=== PATIENT | male | born 1960 | race Caucasian/White ===

== ENCOUNTER 2016-04-14 05:10 | Day surgery (SDC) | payer OTHER ==
[2016-04-06 12:20] VITALS: BMI 21.1
[~2016-04-14 05:10] MED LIST: ACETAMINOPHEN TAB 500 MG TAB PO ONE; DEXAMETHASONE SOD PHOSPHATE 10 MG/ML 1 ML VIAL IV ONE; FAMOTIDINE 20 MG/2 ML VIAL IV ONE; LACTATED RINGERS 1,000 ML IV SCH; ONDANSETRON 4 MG/2 ML VIAL IVP ONE; OXYMETAZOLINE 0.05% NASL SPRAY 15 ML NASAL ONE
[2016-04-14] MEDS ORDERED: LIDOCAINE 1% 20 ML VIAL (10MG/ML) FOR IV START INTRADERMA ONE (05:40)
[2016-04-14] MEDS ORDERED: DEXAMETHASONE SOD PHOS (MDV) 100 MG/10 ML VIAL ONE (06:03)
[2016-04-14] MEDS ORDERED: LACTATED RINGERS 1,000 ML BAG IV ONE (06:03)
[2016-04-14] MEDS ORDERED: LIDOCAINE 1% INJ 10MG/ML (20 ML MDV) ONE (06:03)
[2016-04-14] MEDS ORDERED: MIDAZOLAM 2 MG/2 ML VIAL ONE (06:03)
[2016-04-14] MEDS ORDERED: SUCCINYLCHOLINE CHLORIDE 100 MG/5 ML SYR IV ONE (06:03)
[2016-04-14] MEDS ORDERED: LACTATED RINGERS 1,000 ML IV ONE ×2 (06:03→06:42)
[2016-04-14] MEDS ORDERED: DEXTROSE 5% IN WATER 50 ML BAG ONE (06:03)
[2016-04-14] MEDS ORDERED: ePHEDrine 50 MG/ML 1 ML AMP ONE (06:03)
[2016-04-14] MEDS ORDERED: PROPOFOL 10 MG/ML 20 ML VIAL IV ONE (06:03)
[2016-04-14] MEDS ORDERED: ceFAZolin 1,000 MG VIAL ONE (06:03)
[2016-04-14] MEDS ORDERED: PHENYLEPHRINE-0.9% NACL SYG 1 MG/10 ML SYRINGE ONE (06:03)
[2016-04-14] MEDS ORDERED: fentaNYL (PF) 50 MCG/ML 2 ML AMP ONE (06:03)
[2016-04-14] MEDS: ceFAZolin 1,000 MG in DEXTROSE/WATER 1 50ML.BAG IV ONE ×2 (06:07→06:09)
[2016-04-14] MEDS ORDERED: BACITRACIN 500 UNIT/GM OINT 28.4 GM TUBE TOPICAL ONE (06:26)
[2016-04-14] MEDS ORDERED: LIDOCAINE 1%-EPI 1:100,000 20 ML VIAL SQ ONE ×2 (06:26)
[2016-04-14] MEDS ORDERED: EPINEPHrine 1 MG/ML (MDV) 30 ML VIAL TOPICAL ONE (06:27)
[2016-04-14] MEDS ORDERED: FLUORESCEIN STRIPS 1 MG STRIP MISCELLANE ONE (06:27)
[2016-04-14 07:19] VITALS: TEMP 98
[2016-04-14] MEDS: HYDROmorphone 1 MG/ML 1 ML SYRINGE IVP PRN ×2 (07:30→07:35)
--- NOTE | 2016-04-14 07:34 | P.OP ---
Date of Procedure: 04/14/16 Preoperative Diagnosis: Chronic sinusitis Deviated nasal septum Bilateral hypertrophy of nasal inferior turbinates with obstruction Previous nasal fracture Postoperative Diagnosis: Same Procedure(s) Performed: Bilateral functional endoscopic sinus surgery Septoplasty Bilateral outfracture compression and submucosal resection of the inferior turbinates Anesthesia: MYKE Surgeon: Alexi Juarez Estimated Blood Loss (ml): 10 Pathology: other (Sinonasal) Condition: stable Disposition: PACU Indications for Procedure: This patient had facial trauma fell against his face and developed a septal fracture. He's had a lifetime of sinonasal symptoms with facial pain and pressure, anosmia, intranasal purulence. He's been on multiple antibiotics over the last 2 decades with no long-term improvement. CAT scan shows chronic sinusitis. Large amount of infectious material was noted on CAT scan. After long discussion, the patient is requesting septoplasty, turbinate reduction surgery, and bilateral functional endoscopic sinus surgery. All risks, benefits , and alternative therapies were discussed in detail. Risks of bleeding, infection, need for secondary surgery, penetration into the orbit or brain, etc. etc. were explained, consent was obtained and all questions were answered. Operative Findings: Patient had widespread sinonasal disease. Pus was seen in the maxillary frontal and sphenoid sinuses directly. Septum was severely deviated to the left anteriorly into the right posteriorly. Inferior turbinates were markedly enlarged and obstructive. Description of Procedure: This patient was taken to the operative room and placed in the supine position. A general inhalation anesthetic was administered to the patient by the department of anesthesia with a functioning IV line in place. The patient was monitored throughout the entire case by the department of anesthesia. The eyes were taped shut for protection. The patient was placed in a slight reverse Trendelenburg position. The patient had previously utilize Afrin nasal spray preoperatively. The nose was evaluated and the septum lateral nasal wall and inferior turbinates were injected with lidocaine 1% with epinephrine 1 100,000 bilaterally. Approximately 10 minutes were allowed wait for full vasoconstrictive effects to take place. At this point a caudal incision was made over the caudal portion of the left septum down to the mucoperichondrium. A mucoperichondrial flap was elevated on the left side and dissection was carried with use of tunnels posteriorly. We then made a crossover incision through the cartilage to the contralateral side and for the mucoperichondrial flap development was performed to the extent of visualization on the contralateral side. After the cartilage was freed with use of several crosshatching incisions and removal of some redundant strips of septal cartilage, the septum was straightened and placed back in the midline. The septum was sutured fixated to the ovarian groove. Excellent straightening occurred and the septum was visibly straight. Incision was closed with a 40 rapid Vicryl. We utilized a running nonlocking fashion for closure of the incision. A quilting stitch was used to reapproximate the septal flaps with use of a 40 rapid Vicryl. We then entered the nose with a 0 and 30 Friend amanda endoscope. Previous to this we did inject the lateral nasal wall and middle turbinate and uncinate process with lidocaine 1% with epinephrine 1 100,000. Approximately 10 minutes were allowed wait for full vasoconstrictive effects to take place. With use of a microdebrider and a pediatric backbiter, we took down the uncinate process bilaterally. We then opened the maxillary sinuses bilaterally. We utilized a microdebrider for this and entered the maxillary sinuses and removed diseased tissue. This was done bilaterally. After the maxillary sinuses were opened and the diseased tissue was removed we entered the ethmoid bulla and with use of a microdebrider and up-biting boss and Blakesley, we followed the fovea frontalis through the basal lamella and into the posterior ethmoid air cells and did a total ethmoidectomy. We removed the anterior ethmoid air cells with use of a microdebrider and up-biting boss. After all the anterior ethmoid air cells were removed we did the same in the posterior ethmoid. A total ethmoidectomy was completed in that fashion with removal of all the anterior and posterior ethmoid air cells and diseased tissue. Once the ethmoids cells were all taken down we then entered the sphenoid sinus medially and inferiorly underneath the inferior attachment of the superior turbinate. The sphenoid sinus was opened entered and diseased tissue was removed bilaterally. This was done with a microdebrider and Blakesley. We then entered the frontal sinuses with a giraffe and up-biting Blakesley entered on the agar nasi cells. We open the frontal sinuses and removed sinus tissue that was diseased. We explored the frontal sinuses bilaterally. To summarize all sinuses were open all sinuses were explored and we remove diseased tissue from the sphenoid maxillary and frontal sinuses. Ethmoid sinuses were opened totally. Nasal pore was inserted and minimal bleeding was encountered. We reinspected the skull base there is no signs of any orbital penetration or signs of any intracranial penetration. The sugical site was reinspected after the nasal pore was placed and no bleeding was seen. Intranasal splints were inserted and fixated at the end of the case. We utilized Benjamin nasal splints. There will be removed and the patient returns to the office. Attention was then paid to the inferior turbinates. The bilateral inferior turbinates were hypertrophic and obstructive. We entered the anterior portion of the inferior turbinates with use of a microdebrider. We remove bone and submucosal elements with use of a microdebrider bilaterally. The inferior turbinates underwent a submucosal resection with removal of submucosal tissue and bone. We obtained a much better and normal in size for breathing. The inferior turbinates were then outfractured and compressed with a Boyes nasal elevator. Excellent airway was obtained and was symmetric bilaterally. No bleeding was encountered.
[2016-04-14] MEDS ORDERED: HYDROcodone/APAP 5-325MG 1 EACH TAB PO ONE (08:11)
[2016-04-14 08:42] VITALS: BP 107/65; PULSE 72; RESP 16
[2016-04-15] MEDS ORDERED: ONDANSETRON 4 MG/2 ML VIAL IVP ONE (05:00)
== END 2016-04-14 08:57 | disposition home or self-care (01) ==
LOC: OR 05:10
PROVIDERS: ATTEND Otolaryngology
DX: J32.9 Chronic sinusitis, unspecified (principal); J34.2 Deviated nasal septum; J34.3 Hypertrophy of nasal turbinates; J45.909 Unspecified asthma, uncomplicated; I10 Essential (primary) hypertension; J44.9 Chronic obstructive pulmonary disease, unspecified; F32.9 Major depressive disorder, single episode, unspecified; K21.9 Gastro-esophageal reflux disease without esophagitis; Z95.1 Presence of aortocoronary bypass graft; Z79.82 Long term (current) use of aspirin; Z79.899 Other long term (current) drug therapy; Z79.51 Long term (current) use of inhaled steroids
CPT/HCPCS: 30520; 31267; 31255; 31288; 31276; 30140; 88305; 88300; J0171; J2250; J1100 ×2; J2405; J0690; J2001; J3010; J1170; J2370; J0330; J2704

== ENCOUNTER → 2016-06-08 | Outpatient (CLI) | payer OTHER ==
--- NOTE | 2016-06-09 11:12 | ECHOF ---
Referral Reason:I50.9 CHF MEASUREMENTS -------- HEIGHT: 185.4 cm WEIGHT: 71.2 kg BP: 120/74 RVIDd: 2.8 cm (< 3.3) IVSd: 0.9 cm (0.6 - 1.1) LVIDd: 4.9 cm (3.9 - 5.3) LVPWd: 1.0 cm (0.6 - 1.1) IVSs: 1.6 cm LVIDs: 3.6 cm LVPWs: 1.4 cm LA Diam: 4.2 cm (2.7 - 3.8) LAESV Index (A-L): 27.44 ml/m Ao Diam: 2.9 cm (2.0 - 3.7) AV Cusp: 1.8 cm (1.5 - 2.6) MV EXCURSION: 13.536 mm (> 18.000) MV EF SLOPE: 79 mm/s (70 - 150) EPSS: 1.0 cm MV E Orville: 0.64 m/s MV DecT: 249 ms MV A [place]ville: 0.73 m/s MV E/A Ratio: 0.88 RAP: 5.00 mmHg RVSP: 10.90 mmHg FINDINGS -------- Sinus rhythm. This was a technically good study. Left ventricular wall thickness is normal. Overall left ventricular systolic function is normal with, an EF between 55 - 60 %. The right ventricle is normal in size. Normal LA size by volume 22+/-6 ml/m2. The right atrium is normal in size. The aortic valve is trileaflet and appears structurally normal. Mild mitral annular calcification present. There is trace mitral regurgitation. Mild tricuspid regurgitation present. Right ventricular systolic pressure is normal at < 35 mmHg. Trace/mild (physiologic) pulmonic regurgitation. The aortic root size is normal. The inferior vena cava is mildly dilated. There is no pericardial effusion. CONCLUSIONS -------- 1. Sinus rhythm. 2. There is trace mitral regurgitation. 3. Mild tricuspid regurgitation present. 4. Right ventricular systolic pressure is normal at < 35 mmHg. 5. Trace/mild (physiologic) pulmonic regurgitation. 6. The aortic root size is normal. 7. The inferior vena cava is mildly dilated. 8. There is no pericardial effusion. 9. This was a technically good study. 10. Left ventricular wall thickness is normal. 11. Overall left ventricular systolic function is normal with, an EF between 55 - 60 %. 12. The right ventricle is normal in size. 13. Normal LA size by volume 22+/-6 ml/m2. 14. The right atrium is normal in size. 15. The aortic valve is trileaflet and appears structurally normal. 16. Mild mitral annular calcification present. HOSTAGE NEGOTIATOR: Justa Pritchard RDCS
== END | disposition home or self-care (01) ==
LOC: RADECHMAIN 12:51
PROVIDERS: ATTEND Family Medicine
DX: I08.8 Other rheumatic multiple valve diseases (principal)
CPT/HCPCS: 93306

== ENCOUNTER → 2016-06-09 | Outpatient (CLI) | payer OTHER ==
--- NOTE | 2016-06-09 15:44 | XR ---
Lumbar spine HISTORY: Intervertebral disc degeneration 3 views of the lumbar spine, comparison to prior CT abdomen pelvis 28 October 2015 There is a stent present in the distribution of the common iliac artery on the right which shows an i rregular appearance distally and may be partially occluded. Lumbar vertebral bodies show preserved he ight and alignment. Bone mineralization is maintained. There is multilevel spondylosis. Loss of disc height present L5-S1. Sclerosis present in the posterior elements compatible with facet arthropathy. IMPRESSION: Mild degenerative disc disease. Findings within the common iliac artery stent as describe d.
== END | disposition home or self-care (01) ==
LOC: RADXRMAIN 13:03
PROVIDERS: ATTEND Family Medicine
DX: M51.36 Other intervertebral disc degeneration, lumbar region (principal)
CPT/HCPCS: 72100

== ENCOUNTER → 2016-06-22 | Outpatient (CLI) | payer OTHER ==
--- NOTE | 2016-06-22 09:21 | CT ---
EXAMINATION TYPE: CT lumbar spine wo con DATE OF EXAM: 06/22/2016 7:20 AM COMPARISON: Lumbar spine x-ray June 09, 2016. Recent CT abdomen and pelvis October 2015. HISTORY: low back pain for 15 years with pain numbness or tingling into left buttocks and back of thi gh as well as left calf and toes with left leg weakness with prior disc disease L4-L5 level per patie nt, no recent injury per patient. Spondylosis with radiculopathy per order. CT DLP: 649.3 mGycm Automated exposure control for dose reduction was used. FINDINGS: There are 5 lumbar vertebra redemonstrated given [place] of hypoplastic left T12 rib. Lumbar spine shows satisfactory alignment without evidence of acute fracture or dislocation. Vertebral body heigh ts and disc space heights are fairly well-maintained. No large posterior disc herniations are seen on sagittal images. There is mild to minimal multilevel anterior and lateral spurring. Review of axial images shows the T12-L1, L1-L2, and L2-L3 levels all to appear within normal limits. Axial images at the L3-L4 level shows mild broad disc bulge mildly effacing the anterior thecal sac. Bilateral neural foramina are patent. Axial images at the L4-L5 level shows central disc protrusion minimally effacing the anterior thecal sac with mild facet degenerative changes bilaterally on axial image 76. Bilateral neural foramina rem ain patent. Axial images at L5-S1 level show moderate facet degenerative changes bilaterally. There is broad-base d left paracentral disc protrusion on axial images 85 and 86. Spinal canal is not effaced. There is l ateral recess effacement and Suspected effacement of Central left S1 nerve. Bilateral neural foramina are patent. There is a metallic stent in the right common iliac artery at origin. There is mild to moderate calci fied atherotic change of the abdominal aorta and pelvic branch vessels. IMPRESSION: SOME MULTILEVEL DEGENERATIVE CHANGES IN THE LUMBAR SPINE DETAILED ABOVE, MOST PROMINENT DISC HERNI ATION L5-S1 LEVEL APPEARS TO EFFACE THE CENTRAL LEFT S1 NERVE. CONSIDER MRI CONFIRMATION.
== END | disposition home or self-care (01) ==
LOC: RADCTMAIN 06:59
PROVIDERS: ATTEND Family Medicine
DX: M51.17 Intervertebral disc disorders with radiculopathy, lumbosacral region (principal); M47.26 Other spondylosis with radiculopathy, lumbar region
CPT/HCPCS: 72131

== ENCOUNTER 2016-10-18 10:28 | Day surgery (SDC) | payer OTHER ==
[2016-10-17 09:17] VITALS: BMI 24.4
[~2016-10-18 10:28] MED LIST changes: -ACETAMINOPHEN TAB 500 MG TAB PO ONE; -DEXAMETHASONE SOD PHOSPHATE 10 MG/ML 1 ML VIAL IV ONE; -FAMOTIDINE 20 MG/2 ML VIAL IV ONE; -ONDANSETRON 4 MG/2 ML VIAL IVP ONE; -OXYMETAZOLINE 0.05% NASL SPRAY 15 ML NASAL ONE
[2016-10-18 10:51] VITALS: RESP 20; TEMP 97.4
[2016-10-18 11:09] LABS: Glucose,Whole Blood 116 mg/dL (75-99)
[2016-10-18] MEDS ORDERED: LIDOCAINE 1% INJ 10MG/ML (20 ML MDV) ONE (11:23)
[2016-10-18] MEDS ORDERED: MIDAZOLAM 2 MG/2 ML VIAL ONE (11:23)
[2016-10-18] MEDS ORDERED: PROPOFOL 10 MG/ML 20 ML VIAL IV ONE (11:23)
--- NOTE | 2016-10-18 11:29 | P.GSHP ---
History of Present Illness H&P Date: 10/18/16 Chief Complaint: Screening colonoscopy This is a 55-year-old male for from Dr. Torres Parks. Patient presents today for screening colonoscopy. Past Medical History Past Medical History: Asthma, Coronary Artery Disease (CAD), Chest Pain / Angina , COPD, GERD/Reflux, GI Bleed, Hyperlipidemia, Hypertension, Myocardial Infarction (DC), Pneumonia, Vascular Disorder Additional Past Medical History / Comment(s): past HX pneumonia, past irregular heart beat, BULGING DISC, DDD, PVD, peptic ulcer with lower GI bleed, CHRONIC Constipation, DIVERTICULOSIS & HEMORRHOIDS, CYSTIC ACNE. Cyst on Kidney. VOICE HOARSENESS ONGOING. EDEMA RLE. SCIATICA Last Myocardial Infarction Date:: 1983 History of Any Multi-Drug Resistant Organisms: None Reported Past Surgical History: Adenoidectomy, Cholecystectomy, Coronary Bypass/CABG, Heart Catheterization, Heart Catheterization With Stent, Tonsillectomy Additional Past Surgical History / Comment(s): 06/29/15 suspension microlarygoscopy,[place] [facility] [place]gent QUAD CABG 2006 EST. COLONOSCOPY, EGD, lumbar injections, SINUS SX // Past Anesthesia/Blood Transfusion Reactions: No Reported Reaction Date of Last Stent Placement:: 2013 Smoking Status: Current every day smoker - Past Family History Mother Family Medical History: Cancer, Pulmonary Embolus Additional Family Medical History / Comment(s): Breast CA. Father Family Medical History: Myocardial Infarction (DC) Additional Family Medical History / Comment(s): Father of a massive DC at the age of 64yrs. Brother(s) Family Medical History: Cancer Additional Family Medical History / Comment(s): lung and brain cancer Medications and Allergies Home Medications Medication Instructions Recorded Confirmed Type Carvedilol [Coreg] 6.25 mg PO TID 11/28/13 10/18/16 History Desvenlafaxine Succinate [Pristiq 50 mg PO QAM 11/28/13 10/18/16 History ER] Fexofenadine/Pseudoephedrine 1 tab PO BID 11/28/13 10/18/16 History [Kay-D 12 Hour Tablet] Montelukast [Singulair] 10 mg PO DAILY 11/28/13 10/18/16 History cloNIDine HCL [Catapres] 0.2 mg PO BID 12/04/13 10/18/16 History Albuterol Sulfate [Proair Hfa] 2 puff INHALATION RT-Q4H PRN 04/07/15 10/18/16 History Enalapril [Vasotec] 5 mg PO BID 04/07/15 10/18/16 History Fluticasone Nasal [place] [Flonase 1 spray EA NOSTRIL BID PRN 04/07/15 10/18/16 History Nasal [place]] Umeclidinium Brm/Vilanterol Tr 1 puff INHALATION HS 04/07/15 10/18/16 History [Anoro Ellipta 62.5-25 Mcg INH] HYDROcodone/APAP 10-325MG [[place] 1 tab PO QID PRN 10/27/15 10/18/16 History 10-325] Esomeprazole Magnesium [NexIUM] 40 mg PO DAILY 04/06/16 10/18/16 History Aspirin 325 mg PO DAILY 04/07/16 10/18/16 History Gabapentin 600 mg PO Q4H 10/17/16 10/18/16 History tiZANidine [Zanaflex] 4 mg PO Q8HR PRN 10/17/16 10/18/16 History Allergies Allergy/AdvReac Type Severity Reaction Status Date / Time ibuprofen [From Motrin] AdvReac stomach Verified 10/18/16 10:52 bleed Surgical - Exam Vital Signs Temp Pulse Resp BP Pulse Ox 97.4 F L 69 20 124/72 92 L 10/18/16 10:50 10/18/16 10:50 10/18/16 10:50 10/18/16 10:50 10/18/16 10:50 - General well developed, no distress - Eyes PERRL - ENT normal pinna - Neck no masses - Respiratory normal expansion - Cardiovascular Rhythm: regular - Abdomen Abdomen: soft, non tender Results - Labs Abnormal Lab Results - Last 24 Hours (Table) 10/18/16 Range/Units 11:04 POC Glucose (mg/dL) 116 H (75-99) mg/dL Assessment and Plan Plan: We'll perform screening colonoscopy
--- NOTE | 2016-10-18 11:43 | P.OP ---
Date of Procedure: 10/18/16 Preoperative Diagnosis: Screening colonoscopy Postoperative Diagnosis: Incomplete colonoscopy. Tortuous bowel. Normal rectum Procedure(s) Performed: Colonoscopy Implants: Anesthesia: MAC Surgeon: Kee Huang Pathology: none sent Condition: stable Disposition: PACU Indications for Procedure: Operative Findings: Description of Procedure: The patient's placed on the endoscopy table in the lateral position. He received IV sedation. Digital rectal exam was performed which revealed a few external hemorrhoids. Possible colonoscope was then placed patient anus and passed throughout the colon. The scope could not be passed beyond the sigmoid colon secondary to severe tortuosity of bowel. Patient is unable to hold area is well. Multiple times made to advance the colonoscope however this and possible. Scope was withdrawn. The distal sigmoid colon and rectum appeared normal. Scope was withdrawn for patient is scheduled for a barium enema
[2016-10-18 12:19] VITALS: BP 103/60; PULSE 60
--- NOTE | 2016-10-19 10:14 | FL ---
EXAMINATION TYPE: FL barium enema DATE OF EXAM: 10/18/2016 COMPARISON: Correlation CT 10/28/2015 HISTORY: 55-year-old male incomplete colonoscopy. Back pain and prior history of diverticulitis. Total fluoroscopy time: 1 minute 24 seconds. Total images: 37. TECHNIQUE: A double contrast barium enema study is performed. FINDINGS: Saloonkeeper view of the abdomen shows overall non-obstructive bowel gas pattern. There is bilateral AVN at the femoral heads and a kinked right common iliac artery metallic stent inc identally noted. There are abnormal plaque-like accumulations of barium extending from the proximal transverse colon t o the upper to mid descending colon with otherwise poor coating here and also within the more proxima l colon. Mild diverticulosis of the sigmoid colon. No mass identified within the portion of the colon that is evaluated (lower descending colon through to the rectum). No obvious constricting lesion seen anywhere within the colon. IMPRESSION: 1. Very limited exam. Only the colon from the lower descending colon through to the rectum is optimal ly evaluated. There is mild sigmoid diverticulosis. 2. Plaque-like accumulations of barium in the mid colon with poor coating and additional poor coating within the right hemicolon. Suspect poor prep and possible access intraluminal fluid causing barium flocculation. Clinical correlation is recommended. 3. Pathologic etiologies such as colitic ulcerations, submucosal processes such as lymphoma, and muco samson dysplasia are all considered less likely. 4. Consider repeat attempt at colonoscopy versus repeat barium enema after adequate prep. 5. Bilateral femoral head AVN without evidence for subarticular collapse. Correlate with patient's ri sk factors. 6. Incidentally, there is a kinked right common iliac artery stent that appears stable from CT of 10/09.
== END 2016-10-18 12:43 | disposition home or self-care (01) ==
LOC: ORWHC2ENDO 10:28
PROVIDERS: ATTEND Surgery
DX: Z12.11 Encounter for screening for malignant neoplasm of colon (principal); K64.4 Residual hemorrhoidal skin tags; K57.30 Diverticulosis of large intestine without perforation or abscess without bleeding; Q43.8 Other specified congenital malformations of intestine; K21.9 Gastro-esophageal reflux disease without esophagitis; Z87.11 Personal history of peptic ulcer disease; J44.9 Chronic obstructive pulmonary disease, unspecified; I25.10 Atherosclerotic heart disease of native coronary artery without angina pectoris; Z95.1 Presence of aortocoronary bypass graft; Z95.5 Presence of coronary angioplasty implant and graft; E78.5 Hyperlipidemia, unspecified; I10 Essential (primary) hypertension; I73.9 Peripheral vascular disease, unspecified; I49.9 Cardiac arrhythmia, unspecified; I25.2 Old myocardial infarction; F17.200 Nicotine dependence, unspecified, uncomplicated; Z79.82 Long term (current) use of aspirin; Z79.899 Other long term (current) drug therapy
CPT/HCPCS: 74270; 45330; J2250; J2001; J2704

== ENCOUNTER → 2016-11-11 | Outpatient (CLI) | payer OTHER ==
[2016-11-11 10:08] LABS: Blood Urea Nitrogen 4 mg/dL (9-20); Non-African American GFR(MDRD) >60 (>60 ml/min/1.73 sqM)
--- NOTE | 2016-11-11 13:13 | MR ---
EXAMINATION TYPE: MR lumbar spine wo/w con DATE OF EXAM: 11/11/2016 COMPARISON: CT lumbar spine 06/22/2016 HISTORY: lsp neruopathy, pain CONTRAST: 16 mL intravenous MultiHance. TECHNIQUE: Multiplanar, multisequence images of the lumbar spine were acquired. FINDINGS: Cord terminates at the T12 level. Disc heights are preserved. Vertebral body heights are p reserved. Minimal disc bulge is present L5-S1 with anterior thecal sac compression. This is slightly greater in to the left paracentral region. Granulation tissue is present posterior laterally in the left canal a t this level. Correlate with left S1 nerve root impingement. Prior left hemilaminectomy has been perf ormed at L5. No abnormal enhancement is evident. Remaining disc levels have no significant disc bulge or disc herniation. No spinal canal stenosis. No foraminal stenosis. Neural foramen are patent.. IMPRESSION: 1. Postsurgical changes L5-S1. 2. Mild disc bulge may be greater into the left paracentral region. Nerve root impingement could be c onsidered. Correlate with left S1 radicular symptoms.
== END ==
LOC: RADMRIMAIN 09:43
PROVIDERS: ATTEND Family Medicine
DX: M51.26 Other intervertebral disc displacement, lumbar region (principal); Z98.890 Other specified postprocedural states
CPT/HCPCS: 82565; 84520; 72158; 36415; A9577

== ENCOUNTER → 2016-12-16 | Outpatient (CLI) | payer OTHER ==
[2016-12-16 14:21] LABS: EKG EKG PERFORMED
[2016-12-16 15:07] LABS: Anisocytosis Slight; Basophils % (A) 1 %; CH 37.2; CHCM 34.2; Eosinophils # (A) 0.2 k/uL (0-0.7); Eosinophils % (A) 3 %; HCT 51.7 % (39.0-53.0); HDW 2.95; HGB 17.5 gm/dL (13.0-17.5); Luc # (Auto) 0.22; Luc % (Auto) 4; Lymphocytes % (A) 36 %; MCH 37.1 pg (25.0-35.0); MCV 109.3 fL (80.0-100.0); Macrocytosis Marked; Mean Platelet Volume 7.6; Monocytes # (A) 0.4 k/uL (0-1.0); Monocytes % (A) 8 %; Neutrophils # (A) 2.6 k/uL (1.3-7.7); Neutrophils % (A) 48 %; RBC 4.73 m/uL (4.30-5.90); RDW 16.4 % (11.5-15.5); WBC 5.4 k/uL (3.8-10.6); WBC (Perox) 5.55
[2016-12-16 15:16] LABS: Appearance,Urine Clear (Clear); Bilirubin,Urine Negative (Negative); Glucose,Urine (UA) Negative (Negative); Ketones,Urine Negative (Negative); Leukocyte Esterase,Urine Negative (Negative); Nitrite,Urine Negative (Negative); Protein,Urine Negative (Negative); UA Billing (MACRO vs. MICRO) CHEM
[2016-12-16 15:29] LABS: INR 1.2 (<1.2); Partial Thromboplastin Time 27.5 sec (22.0-30.0); Prothrombin Time 11.8 sec (9.0-12.0)
[2016-12-16 15:30] LABS: Anion Gap 10 mmol/L; Blood Urea Nitrogen 7 mg/dL (9-20); Calcium 9.5 mg/dL (8.4-10.2); Carbon Dioxide 30 mmol/L (22-30); Chloride 100 mmol/L (98-107); Glucose 70 mg/dL (74-99); Non-African American GFR(MDRD) >60 (>60 ml/min/1.73 sqM); Potassium 4.8 mmol/L (3.5-5.1); Sodium 140 mmol/L (137-145)
[2016-12-16 16:02] LABS: Polychromasia Present
== END | disposition home or self-care (01) ==
LOC: LABWHC1 14:11
PROVIDERS: ATTEND Orthopaedic Surgery
DX: Z01.812 Encounter for preprocedural laboratory examination (principal); N39.0 Urinary tract infection, site not specified; D61.3 Idiopathic aplastic anemia; I49.49 Other premature depolarization; Z51.81 Encounter for therapeutic drug level monitoring; Z79.01 Long term (current) use of anticoagulants
CPT/HCPCS: 36415; 80048; 81003; 85025; 85610; 85730; 87086; 93005

== ENCOUNTER → 2017-05-22 | Outpatient (CLI) | payer OTHER ==
--- NOTE | 2017-05-22 21:31 | CTL ---
EXAMINATION TYPE: CT Low Dose Lung DATE OF EXAM ORDERED: 05/22/2017 HISTORY: History of tobacco use. Lung cancer screening CT DLP: 81.[address] CTDI: 2.2 mGy Automated exposure control for dose reduction was used. SCREENING VISIT: Initial COMPARISON: 05/05/2014 TECHNIQUE: Low dose computed tomography scan was performed through the chest at 1 mm thick sections a nd reconstructed images in the coronal plane at [address] DIAGNOSTIC QUALITY: Satisfactory FINDINGS: LUNG NODULES: None. Some vague pneumonitis changes within the mid right middle lobe. Some streak opacities in the posteri or left lung base likely related atelectasis. Some lingular atelectasis may also be present. LUNGS: COPD: Severity: Mild Fibrosis: Severity: None Lymph nodes: Few small shotty lymph nodes. No enlarged adenopathy is present Other findings: The ascending thoracic aorta at the level of the main pulmonary artery measures 4.3 c m. The main pulmonary artery at the bifurcation is approximately 2.9 cm. RIGHT PLEURAL SPACE: Effusion: None Calcification: None Thickening: None Pneumothorax: None LEFT PLEURAL SPACE: Effusion: None Calcification: None Thickening: None Pneumothorax: None HEART: Heart Size: Normal Coronary calcification: Moderate Pericardial effusion: None OTHER FINDINGS: Upper abdomen: Normal. The left diaphragm is elevated. Bony thorax: Unremarkable Supraclavicular region: Unremarkable Other: None IMPRESSION: No suspicious changes FOLLOW UP CT CHEST RECOMMENDATION: Screening CT in [address] LUNG RAD: Lung-Rad 1 Negative
== END | disposition home or self-care (01) ==
LOC: RADCTMAIN 14:03
PROVIDERS: ATTEND Family Medicine
DX: Z12.2 Encounter for screening for malignant neoplasm of respiratory organs (principal); F17.200 Nicotine dependence, unspecified, uncomplicated

== ENCOUNTER → 2018-03-27 | Outpatient (CLI) | payer OTHER ==
--- NOTE | 2018-03-27 13:43 | XR ---
EXAMINATION TYPE: XR chest 2V DATE OF EXAM: 03/27/2018 COMPARISON: 10/27/2015 TECHNIQUE: PA and lateral views submitted. HISTORY: Shortness of breath FINDINGS: Postsurgical changes with cardiomegaly noted. Mild hyperinflation. Left basilar subsegmental consolid ation. No pleural effusion or pneumothorax. Mild hypertrophic change spine. Coarsened interstitium ca n be associated with chronic interstitial lung disease. IMPRESSION: 1. COPD. Correlate for chronic interstitial lung disease. Left basilar atelectasis favored over infil trate correlate clinically.
== END | disposition home or self-care (01) ==
LOC: RADXRMAIN 13:10
PROVIDERS: ATTEND Family Medicine
DX: J44.9 Chronic obstructive pulmonary disease, unspecified (principal); J98.11 Atelectasis
CPT/HCPCS: 71046

== ENCOUNTER → 2018-04-25 | Outpatient (CLI) | payer OTHER ==
[2018-04-25 14:37] LABS: Blood Urea Nitrogen 10 mg/dL (9-20)
--- NOTE | 2018-04-25 22:02 | CT ---
EXAMINATION TYPE: CT chest w con DATE OF EXAM: 04/25/2018 COMPARISON: Chest CT May 05, 2014. HISTORY: Difficulty breathing. COPD. CT DLP: 500 mGycm. Automated Exposure Control for Dose Reduction was Utilized. TECHNIQUE: CT scan of the thorax is performed following with IV Contrast, patient injected with 100 mL of Isovue 300. FINDINGS: LUNGS: Elevated left hemidiaphragm is redemonstrated. Moderate underlying emphysematous changes again seen most prominent involving the upper lobes. There is mild to moderate parenchymal scarring in the mid lungs anteriorly and mild scarring throughout the basis. Dependent atelectasis left lower lobe i s noted most prominent near diaphragm. Linear scarring in the lingula is present. No pleural effusion or pneumothorax is seen bilaterally. No suspicious parenchymal nodules or masses are noted. MEDIASTINUM: There are no greater than 1 cm hilar or mediastinal lymph nodes. No pericardial effusi on is seen. Fairly severe negative three-vessel coronary artery calcification is redemonstrated. The re is however post-CABG changes with mediastinal clips and sternal wires noted. Ascending aorta measu res up to 3.8 cm at pulmonary artery bifurcation axial image 27 not significantly changed from prior. OTHER: No additional significant abnormality is seen. IMPRESSION: Moderate emphysematous change most prominent in the upper lungs and mild to moderate fibr otic changes most prominent in the mid to lower lungs without acute pulmonary process.
== END | disposition home or self-care (01) ==
LOC: RADCTMAIN 13:56
PROVIDERS: ATTEND Family Medicine
DX: J43.9 Emphysema, unspecified (principal); J84.10 Pulmonary fibrosis, unspecified
CPT/HCPCS: 82565; 84520; 71260; 36415; Q9967

== ENCOUNTER → 2018-05-01 | Outpatient (CLI) | payer OTHER ==
--- NOTE | 2018-05-01 08:55 | CT ---
EXAMINATION TYPE: CT abdomen pelvis wo con DATE OF EXAM: 05/01/2018 COMPARISON: 10/28/2015 HISTORY: Abdominal pain-umbilical and lower CT DLP: 653 mGycm Automated exposure control for dose reduction was used. TECHNIQUE: Helical acquisition of images was performed from the lung bases through the pelvis. FINDINGS: LUNG BASES: Calcified granuloma right lobe. Subsegmental cyst consolidation most typical of atelectas is both lung bases. Heart size is prominent. LIVER/GB: Cholecystectomy changes are noted. No space occupying hepatic lesion. Biliary tree is of no rmal caliber. Mild hepatic enlargement. PANCREAS: No significant abnormality is seen. SPLEEN: There is evidence of splenomegaly with craniocaudal measurement of 15.2 cm. Accessory spleen noted. ADRENALS: No significant abnormality is seen. KIDNEYS: No significant abnormality is seen. ADENOPATHY: None visualized. OSSEOUS STRUCTURES: Bilateral hip prostheses noted. Artifact obscures portions of the evaluation pel vis. Bladder limited in assessment. BOWEL: Diverticulosis of the colon. OTHER: Atheromatous change abdominal aorta. Probable stenosis right common iliac artery. Tiny fat-con taining periumbilical hernia IMPRESSION: 1. Hepatosplenomegaly. 2. Diverticulosis of colon. 3. Tiny periumbilical hernia. 4. Right lower lobe calcified granuloma. 5. Assessment of the pelvis limited due to artifact from the patient's bilateral hip prostheses.
== END ==
LOC: RADCTMAIN 07:27
PROVIDERS: ATTEND Family Medicine
DX: K57.30 Diverticulosis of large intestine without perforation or abscess without bleeding (principal); K42.9 Umbilical hernia without obstruction or gangrene; R16.2 Hepatomegaly with splenomegaly, not elsewhere classified
CPT/HCPCS: 74176

== ENCOUNTER → 2021-04-05 | Outpatient (CLI) | payer MEDICARE ==
--- NOTE | 2021-04-05 09:55 | CT ---
EXAMINATION TYPE: CT angio neck DATE OF EXAM: 04/05/2021 COMPARISON: None HISTORY: carotid stenosis CT DLP: 214.5 mGycm CONTRAST: CTA cervical carotids is performed and with IV Contrast, patient injected with 65 mL of Isovue 370. Contrast CTA of the cervical carotids was performed 3-D reconstruction imaging obtained at a separate workstation. Right carotid system: Mild plaque is seen of the right common carotid artery. There is severe plaque noted involving the proximal right ICA approximately 1 cm from the bifurcation. There is 99% stenosis noted. ECA is patent. Right vertebral artery appears unremarkable. Left carotid system: Mild plaque is seen of the left common carotid artery. There is mild plaque als o noted at the carotid bulb. Estimated diameter reduction is 50%. ECA is patent. Left vertebral ar megan appears unremarkable. IMPRESSION: 1. Estimated diameter reduction Right ICA 99% 2. Estimated diameter reduction Left ICA 50% NASCET criteria was used in interpretation of this exam?
== END | disposition home or self-care (01) ==
LOC: RADCTMAIN 09:02
PROVIDERS: ATTEND Internal Medicine Interventional Cardiology
DX: I65.23 Occlusion and stenosis of bilateral carotid arteries (principal)
CPT/HCPCS: 70498; Q9967

== ENCOUNTER → 2021-05-21 | Outpatient (CLI) | payer MEDICARE ==
[2021-05-21 18:11] LABS: African American GFR (CKD) 110.7 (60.0-200.0); Anion Gap 12.1 mmol/L (10.00-18.00); Blood Urea Nitrogen 8.2 mg/dL (9.0-27.0); Carbon Dioxide 27.9 mmol/L (20.0-27.5); Non-African American GFR(CKD) 95.5 (60.0-200.0); Potassium 3.5 mmol/L (3.5-5.5)
[2021-05-21 18:23] LABS: Basophils # (A) 0.02 X 10*3/uL (0.00-0.10); Basophils % (A) 0.8 %; Eosinophils # (A) 0.07 X 10*3/uL (0.04-0.35); Eosinophils % (A) 2.7 %; HCT 43.4 % (39.6-50.0); HGB 15.2 g/dL (13.0-17.0); Immature Grans, Automated 0.4 %; Lymphocytes % (A) 49.2 %; MCH 36.1 pg (27.0-32.0); MCV 103.1 fL (80.0-97.0); Mean Platelet Volume 11.5 fL (9.5-12.2); Monocytes # (A) 0.48 X 10*3/uL (0.20-1.00); Monocytes % (A) 18.2 %; NRBC Per 100 WBC 0 /100 WBCS (0.0-0.0); Neutrophils # (A) 0.76 X 10*3/uL (1.80-7.70); Neutrophils % (A) 28.7 %; Platelet Count 193 X 10*3/uL (140-440); RBC 4.21 X 10*6/uL (4.40-5.60); RDW 13.3 % (11.5-14.5); WBC 2.64 X 10*3/uL (4.50-10.00)
== END | disposition home or self-care (01) ==
LOC: LABPAT 12:37
PROVIDERS: ATTEND Surgery
DX: Z01.812 Encounter for preprocedural laboratory examination (principal); I65.29 Occlusion and stenosis of unspecified carotid artery
CPT/HCPCS: 36415; 80051; 82565; 84520; 85025

== ENCOUNTER 2021-10-13 10:28 | Emergency (ER) | payer MEDICARE ==
[2021-10-13] MEDS ORDERED: PANTOPRAZOLE 40 MG/10 ML VIAL IVP STA (10:44)
[2021-10-13] MEDS ORDERED: ONDANSETRON 4 MG/2 ML VIAL IVP STA (10:44)
[2021-10-13] MEDS ORDERED: SODIUM CHLORIDE 0.9% 1,000 ML IV STA (10:44)
[2021-10-13 11:23] LABS: Basophils # (A) 0.1 k/uL (0-0.2); Basophils % (A) 2 %; Eosinophils % (A) 1 %; HCT 44.6 % (39.0-53.0); HGB 15.9 gm/dL (13.0-17.5); Lymphocytes # (A) 0.8 k/uL (1.0-4.8); Lymphocytes % (A) 21 %; MCH 34.6 pg (25.0-35.0); MCHC 35.6 g/dL (31.0-37.0); MCV 97.2 fL (80.0-100.0); Mean Platelet Volume 8.6; Monocytes # (A) 0.4 k/uL (0-1.0); Monocytes % (A) 11 %; Neutrophils # (A) 2.5 k/uL (1.3-7.7); Neutrophils % (A) 63 %; Platelet Count 164 k/uL (150-450); RBC 4.59 m/uL (4.30-5.90); RDW 15.3 % (11.5-15.5); WBC 3.9 k/uL (3.8-10.6)
--- NOTE | 2021-10-13 11:30 | ED ---
General Adult HPI - General Chief complaint: GI Bleed Stated complaint: coughing up blood Time Seen by Provider: 10/13/21 10:44 Source: patient, RN notes reviewed, old records reviewed Mode of arrival: ambulatory Limitations: no limitations - History of Present Illness Initial comments: Patient is a 60-year-old male with past medical history remarkable for COPD, alcohol use, hypertension, MIs who presents emergency Department over concern for coughing up blood. He states he is spitting up sputum mixed with blood mostly last night and a little bit this morning. Since has resolved. Denies any chest pain, shortness of breath, abdominal pain, nausea, vomiting. Denies any fevers, chills. Denies any purulent sputum. His no known sick contacts. Denies any history of blood thinners or blood clots. Denies weakness. Presents at this time for further evaluation over concern for possible bleeding. He is on aspirin and Plavix.Patient does endorse increased coughing. He continues to smoke in the setting of COPD. - Related Data Home Medications Medication Instructions Recorded Confirmed Desvenlafaxine Succinate [Pristiq 50 mg PO DAILY 11/28/13 10/13/21 ER] Fexofenadine/Pseudoephedrine 1 tab PO BID 11/28/13 10/13/21 [Kay-D 12 Hour Tablet] Montelukast [Singulair] 10 mg PO DAILY 11/28/13 10/13/21 HYDROcodone/APAP 10-325MG [[place] 1 tab PO Q4H PRN 10/27/15 10/13/21 10-325] Esomeprazole Magnesium [NexIUM] 40 mg PO DAILY 04/06/16 10/13/21 ALPRAZolam [Xanax] 0.5 mg PO BID 04/20/21 10/13/21 Aspirin 325 mg PO HS 04/20/21 10/13/21 tiZANidine [Zanaflex] 2 mg PO BID 04/20/21 10/13/21 Atorvastatin [Lipitor] 20 mg PO HS 10/13/21 10/13/21 Budesonide/Glycopyr/Formoterol 2 puff INHALATION RT-BID 10/13/21 10/13/21 [Breztri Aerosphere Inhaler] Furosemide [Lasix] 20 mg PO DAILY 07/06/22 07/06/22 Metoprolol Succinate [Metoprolol 25 mg PO DAILY 10/13/21 10/13/21 Succinate ER] Previous Rx's Medication Instructions Recorded Clopidogrel [Plavix] 75 mg PO DAILY 30 Days #30 tab 04/23/21 guaiFENesin [Mucinex] 1,200 mg PO Q12HR 10 Days #20 04/23/21 tablet Albuterol Inhaler [Ventolin Hfa 1 - 2 puff INHALATION RT-Q6H PRN 10/13/21 Inhaler] #1 unit Doxycycline [Vibramycin] 100 mg PO BID 7 Days #14 capsule 10/13/21 predniSONE [Deltasone] 40 mg PO DAILY 5 Days #10 tab 10/13/21 Allergies Allergy/AdvReac Type Severity Reaction Status Date / Time aspirin Allergy Unknown Verified 10/13/21 12:10 ibuprofen [From Motrin] AdvReac stomach Verified 10/13/21 12:10 bleed Review of Systems ROS Statement: Those systems with pertinent positive or pertinent negative responses have been documented in the HPI. Review of Systems: CONST: Denies fever EYES: Denies blurry vision ENT: Denies nasal congestion C/V: Denies Chest pain RESP: Denies shortness of breath GI: Denies abdominal pain : Denies dysuria SKIN: Denies rash. MSK: Denies joint pain. NEURO: Denies headache ROS Other: All systems not noted in ROS Statement are negative. Past Medical History Past Medical History: Asthma, Coronary Artery Disease (CAD), Chest Pain / Angina, COPD, GERD/Reflux, GI Bleed, Hyperlipidemia, Hypertension, Myocardial Infarction (IN), Pneumonia, Vascular Disorder Additional Past Medical History / Comment(s): HX Pneumonia X2, last about 3 wee ks ago. Hx irregular heart beat. BULGING DISC, DDD, PVD, peptic ulcer with lower GI bleed, Chronic Constipation, Diverticulosis, hemorrhoids, Cystic Acne, cyst on kidney, chronic voice hoarseness, edema right lower extremity, Sciatica. Last Myocardial Infarction Date:: 1983 History of Any Multi-Drug Resistant Organisms: None Reported Past Surgical History: Adenoidectomy, Cholecystectomy, Coronary Bypass/CABG, Heart Catheterization, Heart Catheterization With Stent, Joint Replacement, Tonsillectomy Additional Past Surgical History / Comment(s): Suspension microlarygoscopy, stent done in [place] by Dr ALBA at [facility], emergent QUAD CABG 2006, colonoscopy, EGD, lumbar injections, sinus surgery, bilateral hip replacements. Past Anesthesia/Blood Transfusion Reactions: No Reported Reaction Additional Past Anesthesia/Blood Transfusion Reaction / Comment(s): Pt received blood without reaction with CABG. Date of Last Stent Placement:: 2013 Past Psychological History: Anxiety, Depression Smoking Status: Current every day smoker Past Alcohol Use History: Occasional Past Drug Use History: None Reported - Past Family History Mother Family Medical History: Cancer, Pulmonary Embolus Additional Family Medical History / Comment(s): Breast Cancer. Father Family Medical History: Myocardial Infarction (IN) Additional Family Medical History / Comment(s): Father of a massive IN at the age of 64yrs. Brother(s) Family Medical History: Cancer Additional Family Medical History / Comment(s): Lung and brain cancer. General Exam - General Exam Comments Initial Comments: General: Appears in no acute distress. HEAD: Normal with no signs of head trauma. EYES: PERRLA, EOMI, conjunctiva normal, no discharge. ENT: Hearing grossly intact, normal oropharynx. RESPIRATORY: Clear breath sounds bilaterally. No wheezes, rales, or rhonchi. No increased work of breathing. No hypoxia. C/V: Regular rate and rhythm. S1 and S2 auscultated, no edema, peripheral pulses 2+ and intact throughout ABD: Abd is soft, nontender, nondistended EXT: Normal range of motion, no obvious deformity SKIN: No rashes or lesions observed on exposed skin. NEURO: Alert and oriented 4. Limitations: no limitations Course Vital Signs 10/13/21 10/13/21 10/13/21 10:37 10:39 12:31 Temperature 98 F 98.7 F Pulse Rate 90 80 Respiratory 16 22 20 Rate Blood Pressure 145/79 147/77 O2 Sat by Pulse 96 98 Oximetry Medical Decision Making - Medical Decision Making Based on patient's presentation and physical exam, I'm concerned for possible bronchitis but cannot rule out the possibility of a PE in the setting of hemoptysis. This hemoptysis seems to have resolved. However did recommend we obtain basic labs. He was in agreement this plan. Vital signs within normal limits. Cardiac labs also be obtained as well as screening d-dimer. He'll be symptomatically treated with IV medications. EKG shows no signs of acute ischemia. Chest x-ray reveals no acute cardiopulmonary process. Laboratory studies are remarkable for a hemoglobin within normal limits at 15.9. There are no coagulopathies on coagulation factors. D-dimer is within normal limits. Patient is mildly hypokalemic to 3.0 which was replenished. Carbon dioxide is also slightly elevated to 34 in the setting of COPD. Total bilirubin is slightly elevated to 1.6. Remainder of the labs are unremarkable including negative Covid and flu. On reevaluation, I discussed the overall unremarkable workup on the patient with him. I discussed that he likely is experiencing a possible bronchitis with his increased sputum production as well as sputum mixed with blood. I will provide him with a prescription for steroids as well as an antibiotic. He was in agreement this plan. I believe it is safer to be discharged home. Has a follow-up appointment with his physician in the next few days. He'll return if any worsening symptoms. Strict return precautions were provided. I will provide the patient with a prescription for albuterol inhaler, prednisone, doxycycline.. I instructed the patient to follow up with their PCP in the next 1-3 days. I explained that the patient should return to the emergency department if they experience any worsening symptoms. Strict return precautions were discussed with the patient. The patient expressed understanding of these instructions. I answered all questions that the patient had. The patient was discharged home in good condition with their prescriptions and follow up information. - Lab Data Result diagrams: 10/13/21 11:06 10/13/21 11:06 Lab Results 10/13/21 10/13/21 10/13/21 Range/Units 11:06 11:06 11:06 WBC 3.9 (3.8-10.6) k/uL RBC 4.59 (4.30-5.90) m/uL Hgb 15.9 (13.0-17.5) gm/dL Hct 44.6 (39.0-53.0) % MCV 97.2 (80.0-100.0) fL MCH 34.6 (25.0-35.0) pg MCHC 35.6 (31.0-37.0) g/dL RDW 15.3 (11.5-15.5) % Plt Count 164 (150-450) k/uL MPV 8.6 Neutrophils % 63 % Lymphocytes % 21 % Monocytes % 11 % Eosinophils % 1 % Basophils % 2 % Neutrophils # 2.5 (1.3-7.7) k/uL Lymphocytes # 0.8 L (1.0-4.8) k/uL Monocytes # 0.4 (0-1.0) k/uL Eosinophils # 0.0 (0-0.7) k/uL Basophils # 0.1 (0-0.2) k/uL PT 11.0 (9.0-12.0) sec INR 1.0 (<1.2) APTT 28.8 (22.0-30.0) sec D-Dimer 0.36 (<0.60) mg/L FEU Sodium 137 (137-145) mmol/L Potassium 3.0 L (3.5-5.1) mmol/L Chloride 93 L (98-107) mmol/L Carbon Dioxide 34 H (22-30) mmol/L Anion Gap 10 mmol/L BUN 6 L (9-20) mg/dL Creatinine 0.57 L (0.66-1.25) mg/dL Est GFR (CKD-EPI)AfAm >90 (>60 ml/min/1.73 sqM) Est GFR (CKD-EPI)NonAf >90 (>60 ml/min/1.73 sqM) Glucose 133 H (74-99) mg/dL Plasma Lactic Acid [place] (0.7-2.0) mmol/L Calcium 9.0 (8.4-10.2) mg/dL Magnesium 1.7 (1.6-2.3) mg/dL Total Bilirubin 1.6 H (0.2-1.3) mg/dL AST 25 (17-59) U/L ALT 11 (4-49) U/L Alkaline Phosphatase 127 H (38-126) U/L Total Protein 8.0 (6.3-8.2) g/dL Albumin 4.4 (3.5-5.0) g/dL Coronavirus (PCR) (Not Detectd) Influenza Type A RNA (Not Detectd) Influenza Type B (PCR) (Not Detectd) Blood Type Blood Type Recheck Bld Type Recheck Status Antibody Screen Spec Expiration Date 10/13/21 10/13/21 10/13/21 Range/Units 11:06 11:06 11:06 WBC (3.8-10.6) k/uL RBC (4.30-5.90) m/uL Hgb (13.0-17.5) gm/dL Hct (39.0-53.0) % MCV (80.0-100.0) fL MCH (25.0-35.0) pg MCHC (31.0-37.0) g/dL RDW (11.5-15.5) % Plt Count (150-450) k/uL MPV Neutrophils % % Lymphocytes % % Monocytes % % Eosinophils % % Basophils % % Neutrophils # (1.3-7.7) k/uL Lymphocytes # (1.0-4.8) k/uL Monocytes # (0-1.0) k/uL Eosinophils # (0-0.7) k/uL Basophils # (0-0.2) k/uL PT (9.0-12.0) sec INR (<1.2) APTT (22.0-30.0) sec D-Dimer (<0.60) mg/L FEU Sodium (137-145) mmol/L Potassium (3.5-5.1) mmol/L Chloride (98-107) mmol/L Carbon Dioxide (22-30) mmol/L Anion Gap mmol/L BUN (9-20) mg/dL Creatinine (0.66-1.25) mg/dL Est GFR (CKD-EPI)AfAm (>60 ml/min/1.73 sqM) Est GFR (CKD-EPI)NonAf (>60 ml/min/1.73 sqM) Glucose (74-99) mg/dL Plasma Lactic Acid [place] 1.8 (0.7-2.0) mmol/L Calcium (8.4-10.2) mg/dL Magnesium (1.6-2.3) mg/dL Total Bilirubin (0.2-1.3) mg/dL AST (17-59) U/L ALT (4-49) U/L Alkaline Phosphatase (38-126) U/L Total Protein (6.3-8.2) g/dL Albumin (3.5-5.0) g/dL Coronavirus (PCR) (Not Detectd) Influenza Type A RNA Not Detected (Not Detectd) Influenza Type B (PCR) Not Detected (Not Detectd) Blood Type B Positive Blood Type Recheck B Pos Bld Type Recheck Status No Antibody Screen NEGATIVE Spec Expiration Date 10/16/2021 - 230510/13/21 Range/Units 11:06 WBC (3.8-10.6) k/uL RBC (4.30-5.90) m/uL Hgb (13.0-17.5) gm/dL Hct (39.0-53.0) % MCV (80.0-100.0) fL MCH (25.0-35.0) pg MCHC (31.0-37.0) g/dL RDW (11.5-15.5) % Plt Count (150-450) k/uL MPV Neutrophils % % Lymphocytes % % Monocytes % % Eosinophils % % Basophils % % Neutrophils # (1.3-7.7) k/uL Lymphocytes # (1.0-4.8) k/uL Monocytes # (0-1.0) k/uL Eosinophils # (0-0.7) k/uL Basophils # (0-0.2) k/uL PT (9.0-12.0) sec INR (<1.2) APTT (22.0-30.0) sec D-Dimer (<0.60) mg/L FEU Sodium (137-145) mmol/L Potassium (3.5-5.1) mmol/L Chloride (98-107) mmol/L Carbon Dioxide (22-30) mmol/L Anion Gap mmol/L BUN (9-20) mg/dL Creatinine (0.66-1.25) mg/dL Est GFR (CKD-EPI)AfAm (>60 ml/min/1.73 sqM) Est GFR (CKD-EPI)NonAf (>60 ml/min/1.73 sqM) Glucose (74-99) mg/dL Plasma Lactic Acid [place] (0.7-2.0) mmol/L Calcium (8.4-10.2) mg/dL Magnesium (1.6-2.3) mg/dL Total Bilirubin (0.2-1.3) mg/dL AST (17-59) U/L ALT (4-49) U/L Alkaline Phosphatase (38-126) U/L Total Protein (6.3-8.2) g/dL Albumin (3.5-5.0) g/dL Coronavirus (PCR) Not Detected (Not Detectd) Influenza Type A RNA (Not Detectd) Influenza Type B (PCR) (Not Detectd) Blood Type Blood Type Recheck Bld Type Recheck Status Antibody Screen Spec Expiration Date - EKG Data -: EKG Interpreted by Me EKG Comments: 12-lead Electrocardiogram Interpretation Note EKG was reviewed and interpreted by myself. 12-lead ECG performed at 1109 is interpreted by me as revealing normal sinus rhythm at a rate of 82 beats per minute. [place] is normal. SC interval is 190 ms, QRS durations 125 ms, QTc is 350 ms.. There were no ST or T wave abnormalities to suggest myocardial ischemia or injury. R wave progression across the precordium was satisfactory. By my interpretation this EKG is non-diagnostic for acute ischemia. No changes when compared to prior EKG from April 2021. Disposition Clinical Impression: Bronchitis, Hypokalemia Disposition: HOME SELF-CARE Condition: Good Instructions (If sedation given, give patient instructions): Hypokalemia (ED), Acute Bronchitis (ED) Prescriptions: predniSONE [Deltasone] 40 mg PO DAILY 5 Days #10 tab Albuterol Inhaler [Ventolin Hfa Inhaler] 1 - 2 puff INHALATION RT-Q6H PRN #1 unit PRN Reason: Wheezing Doxycycline [Vibramycin] 100 mg PO BID 7 Days #14 capsule Is patient prescribed a controlled substance at d/c from ED?: No Referrals: None,Stated [REFERRING] - 1-2 days Time of Disposition: 12:20
[2021-10-13 11:44] LABS: ALT 11 U/L (4-49); AST 25 U/L (17-59); African American GFR (CKD) >90 (>60 ml/min/1.73 sqM); Albumin 4.4 g/dL (3.5-5.0); Alkaline Phosphatase 127 U/L (38-126); Anion Gap 10 mmol/L; Blood Urea Nitrogen 6 mg/dL (9-20); Carbon Dioxide 34 mmol/L (22-30); Chloride 93 mmol/L (98-107); Glucose 133 mg/dL (74-99); Magnesium 1.7 mg/dL (1.6-2.3); Non-African American GFR(CKD) >90 (>60 ml/min/1.73 sqM); Sodium 137 mmol/L (137-145); Total Bilirubin 1.6 mg/dL (0.2-1.3)
[2021-10-13 11:47] LABS: Partial Thromboplastin Time 28.8 sec (22.0-30.0)
--- NOTE | 2021-10-13 11:53 | XR ---
EXAMINATION TYPE: XR chest 2V DATE OF EXAM: 10/13/2021 COMPARISON: Chest CT April 21, 2021 HISTORY: Chest pain. TECHNIQUE: Frontal and lateral views of the chest are obtained. FINDINGS: Slightly elevated left hemidiaphragm redemonstrated. Overlying sternal wires and mediastin al clips again seen. There is chronic parenchymal changes bilaterally without suspicious new focal ai r space opacity, pleural effusion, or pneumothorax seen. The cardiac silhouette size is stable and u pper limits of normal. The osseous structures are intact. IMPRESSION: Chronic changes without acute pulmonary process.
[2021-10-13] MEDS ORDERED: DOXYCYCLINE 100 MG CAP PO STA (12:21)
[2021-10-13] MEDS ORDERED: predniSONE 50 MG TAB PO STA (12:21)
[2021-10-13] MEDS ORDERED: POTASSIUM CHLORIDE ER 20 MEQ TAB.ER PO STA (12:25)
[2021-10-13 12:32] VITALS: BP 147/77; PULSE 80; RESP 20; TEMP 98.7
== END 2021-10-13 12:34 | disposition home or self-care (01) ==
LOC: EC 10:28
DX: E87.6 Hypokalemia (principal); J40 Bronchitis, not specified as acute or chronic; K21.9 Gastro-esophageal reflux disease without esophagitis; Z79.83 Long term (current) use of bisphosphonates; I25.2 Old myocardial infarction; F17.200 Nicotine dependence, unspecified, uncomplicated; Z20.822 Contact with and (suspected) exposure to COVID-19; Z88.6 Allergy status to analgesic agent
CPT/HCPCS: 36415; 93005; 86900; 86901; 85379; 80053; 83605; 83735; 85025; 85610; 85730; 86850; 87502; 87635; 71046; 99285; 96374; 96361; 96375; J2405; J7512; C9113

== ENCOUNTER 2022-08-12 15:55 | Observation (INO) | payer MEDICARE ==
[2022-08-12] MEDS ORDERED: SODIUM CHLORIDE 0.9% 500 ML 500 ML IV STA (16:30)
--- NOTE | 2022-08-12 16:46 | ED ---
General Adult HPI - General Chief complaint: Nausea/Vomiting/Diarrhea Stated complaint: Allergies Time Seen by Provider: 08/12/22 16:15 Source: patient Mode of arrival: ambulatory Limitations: no limitations - History of Present Illness Initial comments: Patient is a 61-year-old male who presents to the emergency department with concern for ALLERGIES. Patient states he has history and he has been congested for the past 2 weeks. He also reports nasal drainage and mild headache. Over the past 3 days patient has had intermittent episodes of vomiting and diarrhea, nonbloody. He denies any abdominal pain. Patient feels general malaise and weakness. No fever or chills. He denies any coughing. No chest pain or shortness of breath. He does admit to recent pneumonia treatment which she states was at this hospital however according to chart his last visit was in in October 2021. - Related Data Home Medications Medication Instructions Recorded Confirmed Desvenlafaxine Succinate [Pristiq 50 mg PO DAILY 11/28/13 10/13/21 ER] Fexofenadine/Pseudoephedrine 1 tab PO BID 11/28/13 10/13/21 [Kay-D 12 Hour Tablet] Montelukast [Singulair] 10 mg PO DAILY 11/28/13 10/13/21 HYDROcodone/APAP 10-325MG [[place] 1 tab PO Q4H PRN 10/27/15 10/13/21 10-325] Esomeprazole Magnesium [NexIUM] 40 mg PO DAILY 04/06/16 10/13/21 ALPRAZolam [Xanax] 0.5 mg PO BID 04/20/21 10/13/21 Aspirin 325 mg PO HS 04/20/21 10/13/21 tiZANidine [Zanaflex] 2 mg PO BID 04/20/21 10/13/21 Atorvastatin [Lipitor] 20 mg PO HS 10/13/21 10/13/21 Budesonide/Glycopyr/Formoterol 2 puff INHALATION RT-BID 10/13/21 10/13/21 [Breztri Aerosphere Inhaler] Furosemide [Lasix] 20 mg PO DAILY 10/13/21 10/13/21 Metoprolol Succinate [Metoprolol 25 mg PO DAILY 10/13/21 10/13/21 Succinate ER] Previous Rx's Medication Instructions Recorded Clopidogrel [Plavix] 75 mg PO DAILY 30 Days #30 tab 04/23/21 guaiFENesin [Mucinex] 1,200 mg PO Q12HR 10 Days #20 04/23/21 tablet Albuterol Inhaler [Ventolin Hfa 1 - 2 puff INHALATION RT-Q6H PRN 10/13/21 Inhaler] #1 unit Doxycycline [Vibramycin] 100 mg PO BID 7 Days #14 capsule 10/13/21 predniSONE [Deltasone] 40 mg PO DAILY 5 Days #10 tab 10/13/21 Allergies Allergy/AdvReac Type Severity Reaction Status Date / Time aspirin Allergy Unknown Verified 08/12/22 15:58 ibuprofen [From Motrin] AdvReac stomach Verified 08/12/22 15:58 bleed Review of Systems ROS Statement: Those systems with pertinent positive or pertinent negative responses have been documented in the HPI. ROS Other: All systems not noted in ROS Statement are negative. Past Medical History Past Medical History: Asthma, Coronary Artery Disease (CAD), Chest Pain / Angina, COPD, GERD/Reflux, GI Bleed, Hyperlipidemia, Hypertension, Myocardial Infarction ([place]), Pneumonia, Vascular Disorder Additional Past Medical History / Comment(s): HX Pneumonia X2, last about 3 weeks ago. Hx irregular heart beat. BULGING DISC, DDD, PVD, peptic ulcer with lower GI bleed, Chronic Constipation, Diverticulosis, hemorrhoids, Cystic Acne, cyst on kidney, chronic voice hoarseness, edema right lower extremity, Sciatica. Last Myocardial Infarction Date:: 1983 History of Any Multi-Drug Resistant Organisms: None Reported Past Surgical History: Adenoidectomy, Cholecystectomy, Coronary Bypass/CABG, Heart Catheterization, Heart Catheterization With Stent, Joint Replacement, Tonsillectomy Additional Past Surgical History / Comment(s): Suspension microlarygoscopy, stent done in [place] by Dr ALBA at [facility], emergent QUAD CABG 2005, colonoscopy, EGD, lumbar injections, sinus surgery, bilateral hip replacements. Past Anesthesia/Blood Transfusion Reactions: No Reported Reaction Additional Past Anesthesia/Blood Transfusion Reaction / Comment(s): Pt received blood without reaction with CABG. Date of Last Stent Placement:: 2013 Past Psychological History: Anxiety, Depression Smoking Status: Current every day smoker Past Alcohol Use History: Occasional Past Drug Use History: None Reported - Past Family History Mother Family Medical History: Cancer, Pulmonary Embolus Additional Family Medical History / Comment(s): Breast Cancer. Father Family Medical History: Myocardial Infarction ([place]) Additional Family Medical History / Comment(s): Father of a massive [place] at the age of 64yrs. Brother(s) Family Medical History: Cancer Additional Family Medical History / Comment(s): Lung and brain cancer. General Exam Limitations: no limitations General appearance: alert, in no apparent distress Head exam: Present: atraumatic, normocephalic, normal inspection, other (no facial swelling ) Eye exam: Present: normal appearance, PERRL, EOMI. Absent: scleral icterus, conjunctival injection, periorbital swelling ENT exam: Present: normal oropharynx, TM's normal bilaterally Neck exam: Present: normal inspection, full ROM. Absent: tenderness, meningismus, lymphadenopathy Respiratory exam: Present: normal lung sounds bilaterally. Absent: respiratory distress, wheezes, rales, rhonchi, stridor Cardiovascular Exam: Present: regular rate, normal rhythm, normal heart sounds. Absent: systolic murmur, diastolic murmur, rubs, gallop, clicks GI/Abdominal exam: Present: soft, normal bowel sounds. Absent: distended, tenderness, guarding, rebound, rigid Extremities exam: Present: normal inspection, full ROM, normal capillary refill. Absent: pedal edema Neurological exam: Present: alert, oriented X3, CN II-XII intact Psychiatric exam: Present: normal affect, normal mood Skin exam: Present: warm, dry, intact, normal color. Absent: rash Course Vital Signs 08/12/22 15:58 Temperature 97.3 F L Pulse Rate 115 H Respiratory 18 Rate Blood Pressure 167/104 O2 Sat by Pulse 96 Oximetry Medical Decision Making - Medical Decision Making EKG taken at 16:40, interpreted by me Sinus tachycardia with occasional ventricular premature complexes with occasional supraventricular premature complexes, no new ST segment or T-wave abnormality Ventricular rate 102, MN interval 204, QRS duration 114, QTc 426 Was pt. sent in by a medical professional or institution (, PA, PROGRAMS DIRECTOR, urgent care, hospital, or retirement...) When possible be specific @ -No Did you speak to anyone other than the patient for history (EMS, parent, family, police, friend...)? What history was obtained from this source @ -No Did you review nursing and triage notes (agree or disagree)? Why? @ -Triage note patient does not I reviewed and mostly agree. Patient does not have facial swelling Were old charts reviewed (outside hosp., previous admission, EMS record, old EKG, old radiological studies, urgent care reports/EKG's, retirement records)? Report findings @ -No old charts were reviewed Differential Diagnosis (chest pain, altered mental status, abdominal pain women, abdominal pain men, vaginal bleeding, weakness, fever, dyspnea, syncope, headache, dizziness, GI bleed, back pain, seizure, CVA, palpatations, mental health)? @ -Differential Weakness: URI, Hypoglycemia, shock, sepsis, hyponatremia, anemia, infection, [place], ETOH, adverse medicine reaction, overdose, stroke, this is not meant to be an all- inclusive list. EKG interpreted by me (3pts min.). @ -As above X-rays interpreted by me (1pt min.). @ -Yes, chest x-ray shows chronic changes without acute process CT interpreted by me (1pt min.). @ -None done U/S interpreted by me (1pt. min.). @ -None done What testing was considered but not performed or refused? (CT, X-rays, U/S, labs)? Why? @ -Considered CT imaging of the abdomen however patient does not have pain in his nontender exam. Afebrile. What meds were considered but not given or refused? Why? @ -None Did you discuss the management of the patient with other professionals (professionals i.e. , PA, PROGRAMS DIRECTOR, lab, RT, psych nurse, social media marketing specialist, ethics instructor, teacher, senior officer, window caser)? Give summary @ -No Was smoking cessation discussed for >3mins.? @ -No Was critical care preformed (if so, how long)? @ -No Were there social determinants of health that impacted care today? How? (Homelessness, low income, unemployed, alcoholism, drug addiction, transportation, low edu. Level, literacy, decrease access to med. care, [facility] [facility], rehab)? @ -No Was there de-escalation of care discussed even if they declined (Discuss DNR or withdrawal of care, Hospice)? DNR status @ -No What co-morbidities impacted this encounter? (DM, HTN, Smoking, COPD, CAD, Cancer, CVA, ARF, Chemo, Hep., AIDS, mental health diagnosis, sleep apnea, morbid obesity)? @ -None Was patient admitted / discharged? Hospital course, mention meds given and route, prescriptions, significant lab abnormalities, going to OR and other pertinent info. @ -Patient presenting with upper respiratory symptoms, vomiting, diarrhea. Patient resting comfortably in bed he is hemodynamically stable. Patient appears dehydrated. He is mildly tachycardic. No chest pain or shortness breath. The abdomen is soft nontender. Laboratory studies obtained. There is hypokalemia at 3.0 and hypomagnesemia 1.1, likely related to GI loss. No leukocytosis. Chest x-ray shows chronic changes without acute process. Patient given small fluid bolus which resolved tachycardia. Potassium and magnesium supplementation given as well as Augmentin for sinus infection. Patient will be admitted for observation for hypokalaemia and hypomagnesemia Dr. Tao accepts. Patient admitted in stable condition. Undiagnosed new problem with uncertain prognosis? @ -No Drug Therapy requiring intensive monitoring for toxicity (Heparin, Nitro, Insulin, Cardizem)? @ -No Were any procedures done? @ -No Diagnosis/symptom? Hypomagnesemia, hypokalemia Acute, or Chronic, or Acute on Chronic? @ -Acute Uncomplicated (without systemic symptoms) or Complicated (systemic symptoms)? @ -uncomplicated Side effects of treatment? @ -No Exacerbation, Progression, or Severe Exacerbation? @ -No Poses a threat to life or bodily function? How? (Chest pain, [place], [place], pneumonia, PE, COPD, DKA, ARF, appy, cholecystitis, CVA, Diverticulitis, Homicidal, Suicidal, threat to staff... and all critical care pts) @ -Yes Dr. Sharma is my attending - Lab Data Result diagrams: 08/12/22 16:50 08/12/22 16:50 Lab Results 08/12/22 08/12/22 08/12/22 Range/Units 16:50 16:50 16:50 WBC 4.7 (3.8-10.6) k/uL RBC 4.34 (4.30-5.90) m/uL Hgb 15.8 (13.0-17.5) gm/dL Hct 46.3 (39.0-53.0) % MCV 106.6 H (80.0-100.0) fL MCH 36.3 H (25.0-35.0) pg MCHC 34.1 (31.0-37.0) g/dL RDW 16.1 H (11.5-15.5) % Plt Count 185 (150-450) k/uL MPV 8.5 Anisocytosis Slight Macrocytosis Marked A Sodium 132 L (137-145) mmol/L Potassium 3.0 L (3.5-5.1) mmol/L Chloride 89 L (98-107) mmol/L Carbon Dioxide 31 H (22-30) mmol/L Anion Gap 12 mmol/L BUN 10 (9-20) mg/dL Creatinine 0.71 (0.66-1.25) mg/dL Est GFR (CKD-EPI)AfAm >90 (>60 ml/min/1.73 sqM) Est GFR (CKD-EPI)NonAf >90 (>60 ml/min/1.73 sqM) Glucose 123 H (74-99) mg/dL Plasma Lactic Acid [place] 1.1 (0.7-2.0) mmol/L Calcium 8.7 (8.4-10.2) mg/dL Magnesium 1.1 L (1.6-2.3) mg/dL Total Bilirubin 2.3 H (0.2-1.3) mg/dL AST 59 (17-59) U/L ALT 27 (4-49) U/L Alkaline Phosphatase 86 (38-126) U/L Total Protein 7.5 (6.3-8.2) g/dL Albumin 4.2 (3.5-5.0) g/dL Lipase 40 (23-300) U/L Influenza Type A (PCR) (Not Detectd) Influenza Type B (PCR) (Not Detectd) RSV (PCR) (Not Detectd) SARS-CoV-2 (PCR) (Not Detectd) 08/12/22 Range/Units 16:50 WBC (3.8-10.6) k/uL RBC (4.30-5.90) m/uL Hgb (13.0-17.5) gm/dL Hct (39.0-53.0) % MCV (80.0-100.0) fL MCH (25.0-35.0) pg MCHC (31.0-37.0) g/dL RDW (11.5-15.5) % Plt Count (150-450) k/uL MPV Anisocytosis Macrocytosis Sodium (137-145) mmol/L Potassium (3.5-5.1) mmol/L Chloride (98-107) mmol/L Carbon Dioxide (22-30) mmol/L Anion Gap mmol/L BUN (9-20) mg/dL Creatinine (0.66-1.25) mg/dL Est GFR (CKD-EPI)AfAm (>60 ml/min/1.73 sqM) Est GFR (CKD-EPI)NonAf (>60 ml/min/1.73 sqM) Glucose (74-99) mg/dL Plasma Lactic Acid [place] (0.7-2.0) mmol/L Calcium (8.4-10.2) mg/dL Magnesium (1.6-2.3) mg/dL Total Bilirubin (0.2-1.3) mg/dL AST (17-59) U/L ALT (4-49) U/L Alkaline Phosphatase (38-126) U/L Total Protein (6.3-8.2) g/dL Albumin (3.5-5.0) g/dL Lipase (23-300) U/L Influenza Type A (PCR) Not Detected (Not Detectd) Influenza Type B (PCR) Not Detected (Not Detectd) RSV (PCR) Not Detected (Not Detectd) SARS-CoV-2 (PCR) Not Detected (Not Detectd) Disposition Clinical Impression: Hypomagnesemia, Hypokalemia, Vomiting, Diarrhea Disposition: ADMITTED IP TO THIS [facility] Condition: Stable Referrals: Torres Tao MD [Primary Care Provider] - 1-2 days
--- NOTE | 2022-08-12 17:24 | XR ---
EXAMINATION TYPE: XR chest 2V DATE OF EXAM: 08/12/2022 5:18 PM COMPARISON: Chest radiographs from 10/13/2021 TECHNIQUE: XR chest 2V Frontal and lateral views of the chest. CLINICAL INDICATION:Male, 61 years old with history of fatigue; FINDINGS: Lungs/Pleura: There is no evidence of pleural effusion, focal consolidation, or pneumothorax. Persist ent elevation left hemidiaphragm. Chronic parenchymal change. Pulmonary vascularity: Unremarkable. Heart/mediastinum: Cardiomediastinal silhouette is enlarged and stable. Atherosclerotic calcificatio ns are seen in the aorta. Musculoskeletal: No acute osseous pathology. Midline sternotomy wires are noted and stable. IMPRESSION: Chronic changes without evidence for acute process.
[2022-08-12 17:26] LABS: Anisocytosis Slight; Basophils % (A) 0 %; Eosinophils # (A) 0.1 k/uL (0-0.7); Eosinophils % (A) 1 %; HCT 46.3 % (39.0-53.0); HGB 15.8 gm/dL (13.0-17.5); Lymphocytes % (A) 21 %; MCH 36.3 pg (25.0-35.0); MCHC 34.1 g/dL (31.0-37.0); MCV 106.6 fL (80.0-100.0); Macrocytosis Marked; Mean Platelet Volume 8.5; Monocytes # (A) 0.5 k/uL (0-1.0); Monocytes % (A) 11 %; Neutrophils % (A) 63 %; Platelet Count 185 k/uL (150-450); RBC 4.34 m/uL (4.30-5.90); RDW 16.1 % (11.5-15.5); WBC 4.7 k/uL (3.8-10.6)
[2022-08-12] MEDS ORDERED: AMOXIC-POT CLAV 875-125MG 1 EACH TAB PO STA (17:36)
[2022-08-12 17:56] LABS: ALT 27 U/L (4-49); AST 59 U/L (17-59); African American GFR (CKD) >90 (>60 ml/min/1.73 sqM); Albumin 4.2 g/dL (3.5-5.0); Alkaline Phosphatase 86 U/L (38-126); Anion Gap 12 mmol/L; Blood Urea Nitrogen 10 mg/dL (9-20); Calcium 8.7 mg/dL (8.4-10.2); Carbon Dioxide 31 mmol/L (22-30); Chloride 89 mmol/L (98-107); Glucose 123 mg/dL (74-99); Lipase 40 U/L (23-300); Magnesium 1.1 mg/dL (1.6-2.3); Non-African American GFR(CKD) >90 (>60 ml/min/1.73 sqM); Sodium 132 mmol/L (137-145); Total Bilirubin 2.3 mg/dL (0.2-1.3); Total Protein 7.5 g/dL (6.3-8.2)
[2022-08-12] MEDS ORDERED: MAGNESIUM SULFATE-D5W PMX 1 GM in DEXTROSE/WATER 1 100ML.BAG IVPB ONE (17:58)
[2022-08-12] MEDS ORDERED: POTASSIUM CHLORIDE ER 20 MEQ TAB.ER PO STA (17:58)
[2022-08-12] MEDS ORDERED: NALOXONE 0.4 MG/ML 1 ML VIAL IV PRN (18:33)
[2022-08-12] MEDS: ASPIRIN 325 MG TAB PO SCH (21:23)
[2022-08-12] MEDS: ALPRAZolam 1 MG TAB PO SCH (21:23)
[2022-08-12] MEDS: ATORVASTATIN 40 MG TAB PO SCH (21:23)
[2022-08-12] MEDS: tiZANidine 4 MG TAB PO SCH (22:38)
[2022-08-12] MEDS: LORATADINE-PSEUDOEPH 5-120 MG 1 EACH TAB.ER.12H PO SCH (22:38)
[2022-08-12 22:51] LABS: ALT 24 U/L (4-49); AST 47 U/L (17-59); African American GFR (CKD) >90 (>60 ml/min/1.73 sqM); Albumin 3.8 g/dL (3.5-5.0); Alkaline Phosphatase 79 U/L (38-126); Anion Gap 11 mmol/L; Blood Urea Nitrogen 10 mg/dL (9-20); Calcium 8.6 mg/dL (8.4-10.2); Carbon Dioxide 30 mmol/L (22-30); Chloride 91 mmol/L (98-107); Glucose 115 mg/dL (74-99); Magnesium 1.5 mg/dL (1.6-2.3); Non-African American GFR(CKD) >90 (>60 ml/min/1.73 sqM); Potassium 2.8 mmol/L (3.5-5.1); Sodium 132 mmol/L (137-145); Total Bilirubin 2.1 mg/dL (0.2-1.3); Total Protein 6.8 g/dL (6.3-8.2)
[2022-08-13] MEDS: SYMBICORT 160-4.5 MCG INHALER INHALATION SCH ×2 (08:00→20:13)
[2022-08-13] MEDS: IPRATROPIUM 0.5 MG/2.5 ML NEBU INHALATION SCH ×4 (08:00→20:13)
[2022-08-13] MEDS: DESVENLAFAXINE SUCCINATE 50 MG TAB.ER.24H PO SCH (09:38)
[2022-08-13] MEDS: MULTIVITAMINS, THERA 1 EACH TAB PO SCH (09:38)
[2022-08-13] MEDS: CLOPIDOGREL 75 MG TAB PO SCH (09:38)
[2022-08-13] MEDS: MONTELUKAST 10 MG TAB PO SCH (09:38)
[2022-08-13] MEDS: ALPRAZolam 1 MG TAB PO SCH ×2 (09:38→19:52)
[2022-08-13] MEDS: METOPROLOL SUCCINATE (ER) 25 MG TAB.ER.24H PO SCH (09:38)
[2022-08-13] MEDS: PANTOPRAZOLE 40 MG TABLET PO SCH (09:38)
[2022-08-13] MEDS: tiZANidine 4 MG TAB PO SCH ×2 (09:39→19:52)
[2022-08-13] MEDS: LORATADINE-PSEUDOEPH 5-120 MG 1 EACH TAB.ER.12H PO SCH ×2 (09:39→19:52)
[2022-08-13 11:25] LABS: Anisocytosis Slight; Basophils % (A) 0 %; Eosinophils % (A) 1 %; HCT 45.7 % (39.0-53.0); HGB 15.4 gm/dL (13.0-17.5); Lymphocytes # (A) 0.9 k/uL (1.0-4.8); Lymphocytes % (A) 14 %; MCH 36.1 pg (25.0-35.0); MCHC 33.7 g/dL (31.0-37.0); MCV 107.3 fL (80.0-100.0); Macrocytosis Marked; Mean Platelet Volume 8.9; Monocytes # (A) 0.7 k/uL (0-1.0); Monocytes % (A) 11 %; Neutrophils # (A) 4.5 k/uL (1.3-7.7); Neutrophils % (A) 71 %; Platelet Count 186 k/uL (150-450); RBC 4.26 m/uL (4.30-5.90); RDW 16.1 % (11.5-15.5); WBC 6.3 k/uL (3.8-10.6)
[2022-08-13 11:36] LABS: ALT 27 U/L (4-49); AST 61 U/L (17-59); African American GFR (CKD) >90 (>60 ml/min/1.73 sqM); Albumin 3.8 g/dL (3.5-5.0); Albumin/Globulin Ratio 1.2; Alkaline Phosphatase 68 U/L (38-126); Anion Gap 11 mmol/L; Blood Urea Nitrogen 11 mg/dL (9-20); Calcium 9.1 mg/dL (8.4-10.2); Carbon Dioxide 31 mmol/L (22-30); Chloride 92 mmol/L (98-107); Globulin 3.1 g/dL; Glucose 131 mg/dL (74-99); Non-African American GFR(CKD) >90 (>60 ml/min/1.73 sqM); Potassium 2.9 mmol/L (3.5-5.1); Sodium 134 mmol/L (137-145); Total Bilirubin 1.7 mg/dL (0.2-1.3); Total Protein 6.9 g/dL (6.3-8.2)
[2022-08-13] MEDS: POTASSIUM CHLORIDE 20 MEQ in WATER FOR INJECTION 1 100ML.BAG IVPB SCH ×2 (11:51→13:55)
[2022-08-13] MEDS: HYDROcodone/APAP 10-325MG 1 EACH TAB PO PRN ×2 (12:32→18:10)
[2022-08-13] MEDS: NICOTINE 21MG/24HR PATCH TRANSDERM SCH (15:17)
[2022-08-13] MEDS: ATORVASTATIN 40 MG TAB PO SCH (19:52)
[2022-08-13] MEDS: ASPIRIN 325 MG TAB PO SCH (19:52)
[2022-08-14] MEDS: HYDROcodone/APAP 10-325MG 1 EACH TAB PO PRN ×3 (00:06→13:01)
[2022-08-14] MEDS: POTASSIUM CHLORIDE ER 20 MEQ TAB.ER PO SCH ×2 (00:06→00:59)
[2022-08-14] MEDS ORDERED: Potassium Replacement Protocol 1 EACH MISC MISCELLANE PRN (07:21)
[2022-08-14] MEDS: SYMBICORT 160-4.5 MCG INHALER INHALATION SCH ×2 (07:42→18:47)
[2022-08-14] MEDS: IPRATROPIUM 0.5 MG/2.5 ML NEBU INHALATION SCH ×4 (07:42→18:47)
[2022-08-14 08:06] VITALS: RESP 18
[2022-08-14] MEDS ORDERED: IOPAMIDOL CONTRAST (ORAL USE) VIAL PO PRN (08:10)
[2022-08-14] MEDS: NICOTINE 21MG/24HR PATCH TRANSDERM SCH (08:50)
[2022-08-14] MEDS: METOPROLOL SUCCINATE (ER) 25 MG TAB.ER.24H PO SCH (08:51)
[2022-08-14] MEDS: tiZANidine 4 MG TAB PO SCH (08:51)
[2022-08-14] MEDS: DESVENLAFAXINE SUCCINATE 50 MG TAB.ER.24H PO SCH (08:51)
[2022-08-14] MEDS: MONTELUKAST 10 MG TAB PO SCH (08:51)
[2022-08-14] MEDS: LORATADINE-PSEUDOEPH 5-120 MG 1 EACH TAB.ER.12H PO SCH (08:51)
[2022-08-14] MEDS: CLOPIDOGREL 75 MG TAB PO SCH (08:51)
[2022-08-14] MEDS: PANTOPRAZOLE 40 MG TABLET PO SCH (08:51)
[2022-08-14] MEDS: ALPRAZolam 1 MG TAB PO SCH (08:51)
[2022-08-14] MEDS: MULTIVITAMINS, THERA 1 EACH TAB PO SCH (08:51)
--- NOTE | 2022-08-14 08:58 | HP ---
HISTORY AND PHYSICAL HISTORY OF PRESENT ILLNESS: A 61-year-old white male, who came in with abdominal pain, vomiting, diarrhea for the past week. He was found to be dehydrated and he was rehydrated. He has typical signs of possible gastroenteritis and COPD exacerbation secondary to vomiting. MEDICATIONS: 1. Singulair 10 mg daily. 2. [place] 10/325 every 4. 3. Nexium 40 daily. 4. Xanax 0.5 b.i.d. 5. Pristiq 50 mg daily. 6. Aspirin 325 daily. 7. Lipitor 20 mg daily. 8. Lasix 20 daily. 9. Metoprolol succinate 25 daily. ALLERGIES: Motrin. PAST MEDICAL HISTORY: Appendectomy, cholecystectomy, CABG surgery, carotid endarterectomy, total knee replacement, tonsillectomy. FAMILY HISTORY: Mother had cancer, pulmonary embolism, and breast cancer. Father with myocardial infarction. Brother with cancer. PHYSICAL EXAMINATION: VITAL SIGNS: Temperature 97.1, pulse 115, respiratory rate 16 to 18, blood pressure 166/104, . SKIN: Dry skin turgor. Dry mucous membranes. CARDIOVASCULAR: S1, S2. Tachy. LUNGS: Decreased breath sounds, scattered rhonchi x4. PSYCHIATRIC: Alert and oriented x3. NEUROLOGIC: Cranial nerves intact. EXTREMITIES: No edema. ENDOCRINE: He appears cachectic in respiratory distress, and abdominal pain 2/10. Labs were reviewed. He has probable gastroenteritis with severe dehydration and severe hypokalemia. Potassium had been replaced twice, but still low. As he has progressive vomiting and diarrhea, continue current treatments. Continue his home medications. For hypokalemia, continue rehydration and electrolyte rebalance. Prognosis guarded. MMODL / IJN: [id number] /
[2022-08-14 10:50] LABS: HGB 13.9 g/dL (13.0-17.0); MCH 37.2 pg (27.0-32.0); MCHC 34.8 g/dL (32.0-37.0); Mean Platelet Volume 11.5 fL (9.5-12.2); NRBC Per 100 WBC 0 /100 WBCS (0.0-0.0); Platelet Count 173 X 10*3/uL (140-440); RBC 3.74 X 10*6/uL (4.40-5.60); RDW 16.1 % (11.5-14.5); WBC 4.81 X 10*3/uL (4.50-10.00)
[2022-08-14 10:51] LABS: Albumin 3.6 g/dL (3.8-4.9); Albumin/Globulin Ratio 1.5 (1.60-3.17); Anion Gap 10.3 mmol/L (10.00-18.00); BUN/Creat Ratio 13.5 Ratio (12.00-20.00); Blood Urea Nitrogen 8.1 mg/dL (9.0-27.0); Carbon Dioxide 26.7 mmol/L (20.0-27.5); Globulin 2.4 g/dL (1.6-3.3); Potassium 3.6 mmol/L (3.5-5.5); Total Bilirubin 1.2 mg/dL (0.30-1.20)
--- NOTE | 2022-08-14 11:54 | CT ---
EXAMINATION TYPE: CT abdomen wo con CT DLP: 320.2 mGycm, Automated exposure control for dose reduction was used. DATE OF EXAM: 08/14/2022 11:15 AM COMPARISON: CT abdomen pelvis most recent from 05/01/2018 CLINICAL INDICATION:Male, 61 years old with history of lft high; Elevated liver function test TECHNIQUE: Axial CT of the abdomen. Sagittal and [facility] Contrast used: None Oral contrast used: with Oral Contrast FINDINGS: LOWER CHEST: Unremarkable ABDOMEN LIVER: Diffusely hypoattenuating parenchyma. GALLBLADDER AND BILE DUCTS: The gallbladder is not visualized and may be surgically absent. No extra hepatic biliary dilation. PANCREAS: Unremarkable. SPLEEN: Unremarkable. ADRENAL GLANDS: Unremarkable. KIDNEYS AND URETERS: No evidence of hydronephrosis or renal calculus. The ureters are unremarkable. STOMACH AND BOWEL: No evidence of bowel obstruction. PERITONEUM/RETROPERITONEUM: No evidence of pneumoperitoneum or free fluid. VASCULATURE: Mild atherosclerotic calcifications are present throughout the abdominal aorta and its b ranches. No evidence of aortic aneurysm. MUSCULOSKELETAL: No acute osseous abnormalities LYMPH NODES: No gross evidence for lymphadenopathy. SOFT TISSUE/ABDOMINAL WALL: Unremarkable IMPRESSION: Hepatic steatosis. Limited evaluation of the liver without IV contrast. The gallbladder appears surgi ursula absent. No acute intraluminal process.
[2022-08-14 12:34] LABS: Basophils # (A) 0.04 X 10*3/uL (0.00-0.10); Basophils % (A) 0.8 %; Eosinophils # (A) 0.14 X 10*3/uL (0.04-0.35); Eosinophils % (A) 2.9 %; Immature Grans, Automated 0.4 %; Lymphocytes # (A) 1.52 X 10*3/uL (0.90-5.00); Lymphocytes % (A) 31.6 %; Monocytes # (A) 0.53 X 10*3/uL (0.20-1.00); Neutrophils # (A) 2.56 X 10*3/uL (1.80-7.70); Neutrophils % (A) 53.3 %
[2022-08-14 12:35] LABS: Macrocytosis (M) 2+
[2022-08-14 15:14] VITALS: BP 139/82; TEMP 97.8
[2022-08-14 18:58] VITALS: PULSE 80
--- NOTE | 2022-08-15 00:27 | DS ---
DISCHARGE SUMMARY HOSPITAL COURSE: A 61-year-old white male, came in with diarrhea, hypokalemia, hypomagnesemia, gastroenteritis . The patient had nausea, vomiting, severe headache, hypokalemia, hypomagnesemia, and prerenal azotemia, which is secondary to recovery from this and multiple electrolyte replacements and the patient's weakness improved. Electrolytes came back to normal on discharge. He was up ambulating prior to discharge. He will follow up as an outpatient. He will continue his home medicines. Diet regular. Ambulate as tolerated. Current treatments, please see further orders. MEDICATIONS: Include, 1. Nicotine patch 21 mg daily. 2. Singulair 10 mg daily. 3. . 4. Pristiq ER 50 mg daily. 5. [place] 10 q.i.d. p.r.n. for pain. 6. Zanaflex 2 mg b.i.d. 7. Aspirin 325 daily. 8. Plavix 75 mg daily. 9. Metoprolol succinate 25 mg daily. 10.Spiriva Respimat 1 puff daily. 11.Prilosec 40 mg daily. 12.Symbicort 160/4.5 two puffs b.i.d. 13.Xanax 1 mg b.i.d. 14.Multivitamin daily. 15.Lipitor 40 mg daily. Please see further orders. CONDITION: Stable. MMODL / IJN: [id number] /
== END 2022-08-14 19:50 | disposition home or self-care (01) ==
LOC: EC 15:55 → INTOOBSV 18:40 → 5NMEDONC 18:40 → UNDODISIN 08-14 19:50
PROVIDERS: ADMIT Family Medicine; ATTEND Family Medicine
DX: E83.42 Hypomagnesemia (principal); E87.6 Hypokalemia; R19.7 Diarrhea, unspecified; R11.2 Nausea with vomiting, unspecified; R51.9 Headache, unspecified; R79.89 Other specified abnormal findings of blood chemistry; J45.909 Unspecified asthma, uncomplicated; I25.10 Atherosclerotic heart disease of native coronary artery without angina pectoris; K21.9 Gastro-esophageal reflux disease without esophagitis; E78.5 Hyperlipidemia, unspecified; I10 Essential (primary) hypertension; I73.9 Peripheral vascular disease, unspecified; K59.09 Other constipation; F41.9 Anxiety disorder, unspecified; F32.A Depression, unspecified; F17.200 Nicotine dependence, unspecified, uncomplicated; I25.2 Old myocardial infarction; Z87.11 Personal history of peptic ulcer disease; Z95.5 Presence of coronary angioplasty implant and graft; Z79.82 Long term (current) use of aspirin; Z79.899 Other long term (current) drug therapy; Z79.02 Long term (current) use of antithrombotics/antiplatelets; Z79.51 Long term (current) use of inhaled steroids; Z88.6 Allergy status to analgesic agent; Z20.822 Contact with and (suspected) exposure to COVID-19
CPT/HCPCS: 96366; 96367; 96365; 99285; 36415; 94640 ×2; 94760; 93005; 80053 ×3; 83605; 83690; 83735 ×2; 84132; 85025 ×3; 87636; 71046; 74150; G0378 ×3; S4990 ×2; J3480; J3475